=== PATIENT | male | born 1980 | race Caucasian/White ===

== ENCOUNTER 2021-04-21 12:44 | Emergency (ER) | payer OTHER ==
[~2021-04-21] VITALS: Ht 172.7 cm; Wt 134.5 kg
[2021-04-21] MEDS ORDERED: OMEPRAZOLE40 MG PO (13:07)
[2021-04-21] MEDS ORDERED: CYMBALTA60 MG PO (13:07)
[2021-04-21] MEDS ORDERED: SYNTHROID125 MCG PO (13:07)
[2021-04-21] MEDS ORDERED: VOLTAREN75 MG PO (13:08)
[2021-04-21] MEDS ORDERED: LISINOPRIL20 MG PO (13:11)
[2021-04-21] MEDS ORDERED: SLOW RELEASE I160 MG PO (13:11)
[2021-04-21] MEDS ORDERED: VIAGRA50 MG PO (13:12)
[2021-04-21] MEDS ORDERED: CYCLOBENZAPRINE10 MG PO (13:13)
[2021-04-21] MEDS ORDERED: BENADRYL25 MG PO (13:13)
[2021-04-21] MEDS ORDERED: ZANAFLEX4 MG PO (13:14)
[2021-04-21] MEDS ORDERED: VISTARIL50 MG PO (13:14)
[2021-04-21 13:15] VITALS: Ht 172.7 cm; Wt 134.5 kg
[2021-04-21 13:59] LABS: BILIRUBIN NEGATIVE (NEGATIVE); KETONE NEGATIVE (NEGATIVE); NITRITE NEGATIVE (NEGATIVE); UROBILINOGEN NORMAL mg/dL (< 2)
[2021-04-21 14:00] LABS: BASOPHILS 1.1 % (0-2); EOSINOPHILS 3.6 % (0-7); HEMATOCRIT 45.5 % (42.0-54.0); HEMOGLOBIN 16.2 g/dL (13.5-17.5); LYMPHOCYTES 30.5 % (15-50); MCH 29.9 pg (26.0-34.0); MCHC 35.6 g/dL (31.0-37.0); MEAN PLATELET VOLUME 9.5 fL (7.4-10.4); MONOCYTES 6.6 % (2-11); NEUTROPHILS 58.2 % (40-80); PLATELET COUNT 210 10x3/uL (130-400); RBC 5.42 10x6/uL (4.20-6.10); RDW 13.3 % (11.5-14.5); WBC 6.2 10x3/uL (4.8-10.8)
[2021-04-21 14:08] LABS: ALBUMIN 4.2 g/dL (3.4-5.0); ANION GAP 15.6 mmol/L (8-16); BILIRUBIN - TOTAL 0.88 mg/dL (0.2-1.3); CALCIUM 9.2 mg/dL (8.5-10.1); CARBON DIOXIDE 24.8 mmol/L (21.0-32.0); CREATININE - SERUM 1.4 mg/dL (0.6-1.3); MAGNESIUM - SERUM 2.1 mg/dL (1.8-2.4); POTASSIUM - SERUM 4.4 mmol/L (3.5-5.1); PROTEIN - SERUM 7.7 g/dL (6.4-8.2)
[2021-04-21] MEDS ORDERED: GLUCOPHAGE500 MG PO (14:26)
[2021-04-21 18:36] VITALS: BP 142/79
== END 2021-04-21 18:38 | disposition home or self-care (01) ==
LOC: D.ER 12:44
PROVIDERS: Family Medicine
DX: E11.22 Type 2 diabetes mellitus with diabetic chronic kidney disease (principal); E11.65 Type 2 diabetes mellitus with hyperglycemia; N18.9 Chronic kidney disease, unspecified; E87.1 Hypo-osmolality and hyponatremia; M79.7 Fibromyalgia